=== PATIENT | female | born 1960 | race Caucasian/White ===

== ENCOUNTER 2017-02-12 10:09 | Emergency (ER) | payer BC ==
[~2017-02-12 10:09] MED LIST: ACIPHEX20 MG PO; CULTURELLE1 CAP PO; DEXAMETHASONE2 M1 PO; DIFLUCAN200 MG PO; FERRALET 90 TA1 EACH PO; FERROUS SULFAT160 MG PO; FLAGYL500 MG PO; LEVAQUIN750 MG PO; MOTRIN400 MG PO; NORCO 5/3251 TA1 PO; PROGESTERONE100 MG PO; PROVERA10 MG PO; TYLENOL650 MG PO
[2017-02-12 11:25] LABS: BASO % 0.3 % (0-2); BASO ABSOLUTE COUNT 0.1 tho/cmm (0.0-0.2); EOS % 0.5 % (0-7); EOSINOPHIL ABSOLUTE COUNT 0.1 tho/cmm (0.0-0.7); HCT-HEMATOCRIT 46.7 % (34.0-49.0); HGB-HEMOGLOBIN 16.5 gm/dl (12.0-15.5); IMMATURE GRANULOCYTES ABSOLUTE 0.05 tho/cmm (0-0.03); IMMATURE GRANULOCYTES PERCENT 0.3 % (0-0.3); LYMPH % 10.1 % (20-45); LYMPH ABSOLUTE COUNT 1.5 tho/cmm (0.8-4.5); MCH (MEAN CORPUSCULAR HGB) 32.9 pg (28.0-32.0); MCHC MEAN CORPUSCULAR HGB CONC 35.3 % (32.0-36.0); MEAN PLATELET VOLUME 10.1 cmc (9.4-12.4); MONO % 6.2 % (0-12); MONOCYTE ABSOLUTE COUNT 0.9 tho/cmm (0.0-1.2); NEUTROPHIL ABSOLUTE COUNT 11.9 tho/cmm (1.6-8.0); NEUTROPHIL-AUTOMATED 11.9 tho/cmm (1.6-8.0); NEUTROPHILS % 82.6 % (40-80); PLATELET COUNT 282 tho/cmm (150-450); RED BLOOD COUNT 5.02 mil/cmm (4.00-5.20); RED CELL DISTRIBUTION WIDTH 11.8 % (12.4-16.4); WHITE BLOOD COUNT 14.5 tho/cmm (4.0-10.0)
[2017-02-12 11:36] LABS: ALB/GLOB RATIO 0.7 (0.8-2.0); ALBUMIN 3.5 g/dl (3.5-5.0); ALKALINE PHOSPHATASE 58 U/L (33-138); ALT/SGPT 42 U/L (12-78); ANION GAP 13 mmol/L (0-20); AST/SGOT 42 U/L (10-40); BILIRUBIN,TOTAL 0.5 mg/dl (0-1.5); BLOOD UREA NITROGEN 7 mg/dl (6-24); CALCIUM 8.8 mg/dl (8.5-10.5); CARBON DIOXIDE-VENOUS 26 mmol/L (22-32); CHLORIDE 100 mmol/l (96-110); GLUCOSE 135 mg/dL (70-110); LIPASE 133 U/L (73-393); SODIUM 135 mmol/L (135-145); eGFR VALUE FOR BLACK >90 mL/Min
[2017-02-12 11:37] LABS: POTASSIUM 4.2 mmol/L (3.7-5.1)
[2017-02-12 11:50] LABS: URINE BILIRUBIN NEGATIVE (NEG); URINE BLOOD MODERATE (NEG); URINE GLUCOSE (UA) NEGATIVE (NEG); URINE KETONE SMALL (NEG); URINE LEUKOCYTE ESTERASE POSITIVE (NEG); URINE NITRITE NEGATIVE (NEG); URINE PH 6.5 (5.0-8.0); URINE PROTEIN NEGATIVE (NEG)
[2017-02-12 11:51] LABS: URINE APPEARANCE CLEAR; URINE COLOR YELLOW
[2017-02-12 12:07] LABS: URINE RBC 0-2 /[HPF] (0-5)
[2017-02-12 12:08] LABS: URINE BACTERIA 2+
[2017-02-12] MEDS ORDERED: OMEPRAZOLE40 M2 PO (13:30)
[2017-02-12] MEDS ORDERED: MACROBID 100 M100 M1 PO (13:33)
== END 2017-02-12 14:13 ==
LOC: EDMED 10:09
PROVIDERS: Emergency Medicine
DX: K29.70 Gastritis, unspecified, without bleeding (principal); N39.0 Urinary tract infection, site not specified; E86.0 Dehydration; Z88.2 Allergy status to sulfonamides; Z87.19 Personal history of other diseases of the digestive system
CPT/HCPCS: J2270; J2405; J7030; Q9967